=== PATIENT | female | born 1945 ===

== ENCOUNTER 2017-08-22 09:43 | Emergency (ER) | payer MEDICARE, BC ==
[2017-08-22 10:19] VITALS: BP 156/76
--- NOTE | 2017-08-22 10:44 | ED ---
Respiratory - HPI Summary HPI Summary: 72 yr female with the complaint of coughing, runny nose. Onset of symptoms about a 7 days ago. She denies CP, SOB. She has had some fatigue. What is most annoying to her is the coughing at night. She denies any history of asthma. Denies lung and heart disease. - History of Current Complaint Chief Complaint: UCGeneralIllness Stated Complaint: COUGH/CONGESTION Time Seen by Provider: 08/22/17 10:33 Pain Intensity: 0 - Allergy/Home Medications Allergies/Adverse Reactions: Allergies Allergy/AdvReac Type Severity Reaction Status Date / Time No Known Allergies Allergy Verified 08/22/17 10:12 Home Medications: Home Medications Lisinopril/Hydrochlorothiazide [Zestoretic 20-12.5 mg-] 08/22/17 [History] Meloxicam 08/22/17 [History] Metoprolol Succinate 08/22/17 [History] PARoxetine HCl [Paxil] 08/22/17 [History] Rosuvastatin (NF) [Crestor (NF)] 08/22/17 [History] PMH/Surg Hx/FS Hx/Imm Hx Cardiovascular History: Reports: Hx Hypertension - Surgical History Surgery Procedure, Year, and Place: KYPHOPLASTY. 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 OVARIAN CYST REMOVAL Infectious Disease History: No Infectious Disease History: Denies: Traveled Outside the [place] in Last 30 Days - Family History Known Family History: Positive: None - Social History Alcohol Use: None Substance Use Type: Reports: None Smoking Status (MU): Former Smoker Review of Systems Constitutional: Negative Eyes: Negative Positive: Nasal Discharge Positive: Cough Skin: Negative All Other Systems Reviewed And Are Negative: Yes Physical Exam Triage Information Reviewed: Yes Vital Signs On Initial Exam: Initial Vitals Temp Pulse Resp BP Pulse Ox 97.8 F 78 16 156/76 96 08/22/17 10:11 08/22/17 10:11 08/22/17 10:11 08/22/17 10:11 08/22/17 10:11 Vital Signs Reviewed: Yes Appearance: Positive: Well-Appearing, No Pain Distress Skin: Positive: Warm, Skin Color Reflects Adequate Perfusion Head/Face: Positive: Normal Head/Face Inspection Eyes: Positive: EOMI ENT: Positive: Pharynx normal, Nasal congestion, TMs normal. Negative: Sinus tenderness Neck: Positive: Supple, Nontender Respiratory/Lung Sounds: Positive: Clear to Auscultation, Breath Sounds Present Cardiovascular: Positive: RRR. Negative: Murmur Abdomen Description: Positive: Nontender Musculoskeletal: Positive: Strength/ROM Intact Neurological: Positive: Sensory/Motor Intact, Alert, Oriented to Person Place, Time, CN Intact II-III Psychiatric: Positive: Normal - Jeffrey Coma Scale Best Eye Response: 4 - Spontaneous Best Motor Response: 6 - Obeys Commands Best Verbal Response: 5 - Oriented Coma Scale Total: 15 Diagnostics - Vital Signs Vital Signs Temp Pulse Resp BP Pulse Ox 08/22/17 10:11 97.8 F 78 16 156/76 96 - Laboratory Lab Statement: Any lab studies that have been ordered have been reviewed, and results considered in the medical decision making process. Disposition - Course Course Of Treatment: 72 yr old with URI symptoms. - Diagnoses Provider Diagnoses: Upper respiratory infection, Hypertension Discharge - Discharge Plan Condition: Good Disposition: HOME Prescriptions: Benzonatate CAP* [Tessalon 100 MG CAP*] 100 mg PO TID #14 cap Patient Education Materials: Upper Respiratory Infection (ED), Hypertension (ED ) Referrals: Mamta Amos PA [Primary Care Provider] -
== END 2017-08-22 10:54 | disposition home or self-care (01) ==
LOC: UCCORT 09:43
DX: J06.9 Acute upper respiratory infection, unspecified (principal); I10 Essential (primary) hypertension; Z87.891 Personal history of nicotine dependence
CPT/HCPCS: 99202; G0463